=== PATIENT | female | born 1970 | race Caucasian/White ===

== ENCOUNTER 2018-10-21 08:40 | Emergency (ER) | payer MEDICAID ==
[~2018-10-21] VITALS: Ht 160 cm; Wt 95.3 kg
[~2018-10-21 08:40] MED LIST: ATEN25TA7 PO
[2018-10-21 08:42] VITALS: BP 130/87
--- NOTE | 2018-10-21 08:52 | NUR ---
PT BIB WITH C/O PAIN AND SWELLING AT LFT KNEE DUE TO SLIPING OFF FROM THE COUCH YESTERDAY. PT STATES HAVING PAIN SINCE YESTERDAY 12/31 , TOOK MOTRIN 600 AT HOME FOR PAIN. PT ON , AND FRIDAY. AV SHUNT ON HER UPPER LF FA. HX OF HTN. PT [id number]. HAS CMS PRESENT ON THE LFT FOOT, ABLE TO MOVE IT.DENIES ANY NUMBNESS. ER TO SEE THE PT.
--- NOTE | 2018-10-21 08:52 | NUR ---
X-RAY AT THE BEDSIDE.
[2018-10-21] MEDS ORDERED: KETOROLAC 60 MG/2 ML VIAL IM ONE (09:35)
[2018-10-21 10:04] VITALS: BP 130/87
== END 2018-10-21 10:00 | disposition home or self-care (01) ==
LOC: MED 08:40
DX: S82.832A Other fracture of upper and lower end of left fibula, initial encounter for closed fracture (principal); I10 Essential (primary) hypertension; Z79.899 Other long term (current) drug therapy; W01.0XXA Fall on same level from slipping, tripping and stumbling without subsequent striking against object, initial encounter; Y93.89 Activity, other specified; Y92.89 Other specified places as the place of occurrence of the external cause; Y99.8 Other external cause status
CPT/HCPCS: 29505; 73562; 96372; 99283; J1885; Q0092